=== PATIENT | male | born 1985 | race Caucasian/White ===

== ENCOUNTER 2018-03-01 16:58 | Emergency (ER) | payer SELFPAY ==
[2018-03-01] MEDS ORDERED: Keppra 500 MG/5 ML*** 1,000 MG in D5w 100ML Mini Bag 100 ML 100 ML IV ONE (17:08)
[2018-03-01] MEDS ORDERED: Sodium Chloride 0.9% 1000 ML 1,000 ML IV SCH (17:15)
[2018-03-01 17:21] VITALS: BP 145/88; PULSE 106; O2SAT 97
[2018-03-01] MEDS ORDERED: Keppra 500 MG/5 ML ONE (17:22)
[2018-03-01] MEDS ORDERED: Sodium Chloride 0.9% 1000 ML 1,000 ML ONE (17:22)
[2018-03-01] MEDS ORDERED: D5w 100ML Mini Bag 100 ML 100 ML IV ONE (17:23)
[2018-03-01 17:24] LABS: BASOPHIL % 0.4 % (0.0-0.4); Basophil (Absolute #) 0.05 (0-0.4); Eosinophil % 0.5 % (0.00-5.0); Eosinophil (Absolute #) 0.06 (0-0.5); Granulocyte Absolute (ANC) 9.22 (1.4-6.9); Granulocytes % 71.8 % (36.0-66.0); Hematocrit 43.3 % (42-50); Hemoglobin 15.1 gm/dl (12.5-18.0); Lymphocyte (Absolute #) 2.65 (1.0-4.6); Lymphocytes % 20.6 % (24.0-44.0); Mean Corpuscular Hemoglobin 33.5 pg (26-32); Mean Corpuscular Hgb Concent. 34.9 g/dl (32-36); Mean Platelet Volume 9.8 fl (6-9.5); Monocyte (Absolute #) 0.86 (0.0-1.3); Monocytes % 6.7 % (0.0-12.0); Platelet Count 268 K/mm3 (150-450); Red Blood Count 4.51 M/mm3 (4.1-5.6); Red Cell Distribution Width 12.4 % (11.5-14.0); White Blood Count 12.8 K/mm3 (4.0-10.5)
[2018-03-01 17:41] LABS: ALBUMIN 4.6 g/dL (3.5-5.0); ALKALINE PHOSPHATASE 56 U/L (38-126); ANION GAP 13.2 MEQ/L (5-15); BLOOD UREA NITROGEN 18 mg/dL (9-20); CHLORIDE 109 mmol/L (98-107); Calcium 9.3 mg/dL (8.4-10.2); Carbon Dioxide 23 mmol/L (22-30); Creatinine 1 0.87 mg/dL (0.66-1.25); Glucose 142 mg/dL (74-106); SGOT/AST 15 U/L (17-59); SGPT/ALT 20 U/L (0-50); SODIUM 142 mmol/L (137-145); Total Protein 7.2 g/dL (6.3-8.2)
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
--- NOTE | 2018-03-01 20:12 | XRAY ---
Indication: Seizure. Multiple contiguous axial images obtained through the head without contrast. Comparison: None Normal appearing brain parenchyma, ventricles, and bony calvarium. Visualized paranasal sinuses and mastoid air cells are clear. Impression: Normal CT head without contrast exam. Comment: Preliminary interpretation was made by [facility]. No discrepancy. CTDI 0.81
== END 2018-03-01 18:57 | disposition left against medical advice (07) ==
LOC: ED 16:58
DX: G40.909 Epilepsy, unspecified, not intractable, without status epilepticus (principal)
CPT/HCPCS: 36415; 70450; 80053; 83735; 84484; 85025; 93005; 93041; 96360; 96365; 99284; J1953